=== PATIENT | male | born 1960 | race African-American/Black ===

== ENCOUNTER 2019-06-19 10:14 | Inpatient (IN) | payer BC ==
[~2019-06-19] VITALS: Ht 185.4 cm; Wt 112.7 kg
[2019-06-19 11:15] LABS: BASOPHILS % 0.9 % (0.0-2.0); EOSINOPHILS % 1.4 % (0.0-5.0); HEMATOCRIT. 43.7 % (42.0-52.0); HEMOGLOBIN. 14.9 g/dL (14.0-18.0); LYMPHOCYTES % 26.7 % (20.0-50.0); MEAN CORPUSCULAR HEMOGLOBIN 32.2 pg (28.0-32.0); MEAN CORPUSCULAR VOLUME 94.3 fL (80.0-94.0); MONOCYTES % 10.5 % (2.0-8.0); NEUTROPHILS % 60.5 % (40.0-76.0); PLATELET 152 x1000/uL (130-400); RED BLOOD CELL COUNT 4.64 mill/uL (4.7-6.1); RED CELL DISTRIBUTION WIDTH 13.4 % (11.6-14.6)
[2019-06-19 11:22] LABS: CHLORIDE 108 mEq/L (98-107)
[2019-06-19] MEDS ORDERED: SODIUM CHLORIDE 0.9% 1,000 ML IV ONE (11:30)
[2019-06-19] MEDS ORDERED: INSULIN REGULAR (HUMULIN R) 300UNITS/3ML IV NR (13:00)
[2019-06-19] MEDS ORDERED: SODIUM BICARBONATE 8.4% 1 MEQ/ML 50ML SYR IV NR (13:00)
[2019-06-19] MEDS ORDERED: CALCIUM CHLORIDE 1GM/10ML SYR IV NR (13:00)
[2019-06-19] MEDS ORDERED: DEXTROSE 50% WATER 50ML SYRINGE IV NR (13:00)
[2019-06-19] MEDS ORDERED: DEXTROSE 50% WATER 50ML SYRINGE IV PRN (14:45)
[2019-06-19] MEDS ORDERED: ACETAMINOPHEN 325MG TABLET PO PRN (14:45)
[2019-06-19] MEDS ORDERED: SODIUM POLYSTYRENE SULFONATE 15 G/60 ML BOT PO SCH (15:00)
[2019-06-19] MEDS: SODIUM CHLORIDE 0.9% 1,000 ML IV SCH (15:15)
[2019-06-19 16:47] LABS: CREATINE KINASE 781 IU/L (39-308)
[2019-06-19] MEDS: BLOOD SUGAR DIAGNOSTIC STRIP TEST SCH ×2 (17:11→21:00)
[2019-06-19] MEDS: INSULIN LISPRO 100 UNITS/ML SUBCUT SCH ×2 (18:20→21:00)
[2019-06-20] MEDS ORDERED: AMLODIPINE 5MG TABLET PO SCH (00:30)
[2019-06-20] MEDS ORDERED: METO100T16 PO (00:44)
[2019-06-20] MEDS ORDERED: AMLO10TA80 PO (00:44)
[2019-06-20] MEDS ORDERED: VALS160T28 PO (00:44)
[2019-06-20] MEDS ORDERED: ASPI-1497 PO (00:45)
[2019-06-20] MEDS ORDERED: GLIM2TAB30 PO (00:45)
[2019-06-20] MEDS: SODIUM CHLORIDE 0.9% 1,000 ML IV SCH ×2 (00:54→16:51)
[2019-06-20] MEDS: HEPARIN 5000 UNITS/ML VIAL SUBCUT SCH ×3 (00:55→21:00)
[2019-06-20 01:26] VITALS: BP 174/104
[2019-06-20 01:32] LABS: CLARITY URINE CLEAR (CLEAR); COLOR URINE YELLOW (YELLOW); KETONES URINE NEGATIVE (NEGATIVE); LEUKOCYTE ESTERASE URINE NEGATIVE (NEGATIVE); NITRITE URINE NEGATIVE (NEGATIVE); OCCULT BLOOD URINE 2+ (NEGATIVE); PH URINE 6.5 (4.5-8.0); PROTEIN URINE 4+ (NEGATIVE); SPECIFIC GRAVITY URINE 1.015 (1.005-1.030); UROBILINOGEN URINE 0.2 E.U./dL (0.2-1.0)
[2019-06-20 01:49] LABS: *AMPHETAMINES SCREEN URINE NEGATIVE (NEGATIVE); *BARBITURATES SCREEN URINE NEGATIVE (NEGATIVE)
[2019-06-20 01:50] LABS: *BENZODIAZEPINES SCREEN URINE NEGATIVE (NEGATIVE); *COCAINE SCREEN URINE PRESUMTIVE POSITIVE (NEGATIVE); CANNABINOID URINE SCREEN NEGATIVE (NEGATIVE); METHADONE URINE SCREEN NEGATIVE (NEGATIVE); OPIATES URINE SCREEN NEGATIVE (NEGATIVE); PHENCYCLIDINE URINE SCREEN NEGATIVE (NEGATIVE)
[2019-06-20 04:00] VITALS: BP_SYST 157; BP_SYST 160; BP_DIAS 77; BP_DIAS 98
[2019-06-20] MEDS: BLOOD SUGAR DIAGNOSTIC STRIP TEST SCH ×4 (06:39→21:30)
[2019-06-20 07:39] LABS: BASOPHILS % 0.5 % (0.0-2.0); EOSINOPHILS % 5.7 % (0.0-5.0); HEMATOCRIT. 38.1 % (42.0-52.0); HEMOGLOBIN. 12.8 g/dL (14.0-18.0); MEAN CORPUSCULAR HEMOGLOBIN 31.7 pg (28.0-32.0); MEAN CORPUSCULAR VOLUME 94.2 fL (80.0-94.0); MEAN PLATELET VOLUME 9.1 fl (7.4-10.4); MONOCYTES % 9.5 % (2.0-8.0); NEUTROPHILS % 51.3 % (40.0-76.0); PLATELET 119 x1000/uL (130-400); RED BLOOD CELL COUNT 4.05 mill/uL (4.7-6.1); RED CELL DISTRIBUTION WIDTH 13.6 % (11.6-14.6)
[2019-06-20] MEDS: INSULIN LISPRO 100 UNITS/ML SUBCUT SCH ×4 (07:50→21:30)
[2019-06-20 07:53] LABS: CHLORIDE 112 mEq/L (98-107)
[2019-06-20 08:00] VITALS: BP 179/93
[2019-06-20] MEDS ORDERED: METOPROLOL TARTRATE 100MG TABLET PO SCH (09:00)
[2019-06-20] MEDS: GLIMEPIRIDE 2MG TABLET PO SCH (09:20)
[2019-06-20] MEDS: METOPROLOL TARTRATE 100MG TABLET PO SCH ×2 (10:56→21:28)
[2019-06-20 12:00] VITALS: BP 159/91
[2019-06-20] MEDS: AMLODIPINE 10MG TABLET PO SCH (12:01)
[2019-06-20 12:30] LABS: CREATINE KINASE 568 IU/L (39-308)
[2019-06-20] MEDS: CLONIDINE 0.2MG TABLET PO SCH ×2 (13:48→21:31)
[2019-06-20 16:00] VITALS: BP 130/76
[2019-06-20 20:00] VITALS: BP 141/80
[2019-06-21] VITALS (16 sets, daily range): BP systolic 132–176; BP diastolic 67–89
[2019-06-21] MEDS: SODIUM CHLORIDE 0.9% 1,000 ML IV SCH ×2 (03:49→17:29)
[2019-06-21] MEDS: CLONIDINE 0.2MG TABLET PO SCH ×3 (05:33→21:19)
[2019-06-21] MEDS: BLOOD SUGAR DIAGNOSTIC STRIP TEST SCH ×4 (06:37→21:19)
[2019-06-21 07:24] LABS: PARTIAL THROMBOPLASTIN TIME 29.1 sec (23.4-31.0); PROTHROMBIN TIME 10.4 sec (9.6-11.0)
[2019-06-21] MEDS: INSULIN LISPRO 100 UNITS/ML SUBCUT SCH ×4 (07:50→21:00)
[2019-06-21] MEDS: HEPARIN 5000 UNITS/ML VIAL SUBCUT SCH ×2 (08:05→21:19)
[2019-06-21] MEDS: GLIMEPIRIDE 2MG TABLET PO SCH (08:16)
[2019-06-21] MEDS: METOPROLOL TARTRATE 100MG TABLET PO SCH ×2 (08:16→21:20)
[2019-06-21] MEDS: AMLODIPINE 10MG TABLET PO SCH (08:16)
[2019-06-21] MEDS ORDERED: LIDOCAINE HCL 1% 20ML VIAL (Pyxis) INJ ONE (09:16)
[2019-06-21] MEDS ORDERED: FENTANYL CITRATE/PF 50MCG/ML 2ML VIAL ONE (09:16)
[2019-06-21] MEDS ORDERED: SODIUM BICARBONATE 4% (2.4MEQ) 5ML VIAL IV ONE (09:16)
[2019-06-21] MEDS ORDERED: FENTANYL CITRATE/PF 50MCG/ML 2ML VIAL IV ONE (10:00)
[2019-06-21] MEDS ORDERED: ONDANSETRON HCL 4MG/2ML INJ ONE (10:06)
[2019-06-21] MEDS: ONDANSETRON HCL 4MG/2ML INJ IV PRN ×2 (10:19→11:01)
[2019-06-21] MEDS ORDERED: INSULIN GLARGINE UD 100 UNITS/ML SYR SUBCUT SCH (13:00)
[2019-06-21 13:41] LABS: BASOPHILS % 0.3 % (0.0-2.0); EOSINOPHILS % 2.9 % (0.0-5.0); HEMATOCRIT 36.9 % (42.0-52.0); HEMATOCRIT. 36.8 % (42.0-52.0); LYMPHOCYTES % 21.3 % (20.0-50.0); MEAN CORPUSCULAR HEMOGLOBIN 32.9 pg (28.0-32.0); MEAN CORPUSCULAR VOLUME 93.2 fL (80.0-94.0); MEAN PLATELET VOLUME 9.1 fl (7.4-10.4); MONOCYTES % 6.2 % (2.0-8.0); NEUTROPHILS % 69.3 % (40.0-76.0); PLATELET 126 x1000/uL (130-400); RED BLOOD CELL COUNT 3.95 mill/uL (4.7-6.1); RED CELL DISTRIBUTION WIDTH 13.6 % (11.6-14.6)
[2019-06-21] MEDS ORDERED: ALBUTEROL (0.083%) 2.5MG/3ML NEB HHN NR (14:30)
[2019-06-21] MEDS ORDERED: SODIUM POLYSTYRENE SULFONATE 15 G/60 ML BOT PO NR (16:00)
[2019-06-21 17:06] LABS: ANTI-NUCLEAR ANTIBODIES DIRECT Negative (Negative)
[2019-06-22] VITALS: BP 165/83
[2019-06-22 04:00] VITALS: BP 139/82
[2019-06-22] MEDS: CLONIDINE 0.2MG TABLET PO SCH (05:29)
[2019-06-22] MEDS: BLOOD SUGAR DIAGNOSTIC STRIP TEST SCH (07:45)
[2019-06-22] MEDS: GLIMEPIRIDE 2MG TABLET PO SCH (08:32)
[2019-06-22] MEDS: AMLODIPINE 10MG TABLET PO SCH (08:32)
[2019-06-22] MEDS: HEPARIN 5000 UNITS/ML VIAL SUBCUT SCH (09:00)
[2019-06-22] MEDS: METOPROLOL TARTRATE 100MG TABLET PO SCH (09:00)
[2019-06-22] MEDS: INSULIN LISPRO 100 UNITS/ML SUBCUT SCH (09:15)
[2019-06-22 10:43] LABS: BASOPHILS % 0.3 % (0.0-2.0); EOSINOPHILS % 3.2 % (0.0-5.0); HEMATOCRIT. 35.1 % (42.0-52.0); HEMOGLOBIN. 12.3 g/dL (14.0-18.0); LYMPHOCYTES % 24.1 % (20.0-50.0); MEAN CORPUSCULAR HEMOGLOBIN 32.8 pg (28.0-32.0); MEAN CORPUSCULAR VOLUME 93.6 fL (80.0-94.0); MEAN PLATELET VOLUME 9.4 fl (7.4-10.4); MONOCYTES % 6.2 % (2.0-8.0); NEUTROPHILS % 66.2 % (40.0-76.0); PLATELET 126 x1000/uL (130-400); RED BLOOD CELL COUNT 3.75 mill/uL (4.7-6.1); RED CELL DISTRIBUTION WIDTH 13.2 % (11.6-14.6)
[2019-06-22] MEDS ORDERED: CLON0.2T12 PO (11:17)
[2019-06-22 12:41] VITALS: BP 160/82
== END 2019-06-22 16:19 | disposition home or self-care (01) | DRG 682 ==
LOC: ER 10:14 → 6WST 14:32 → ENRESERV 21:41
PROVIDERS: ADMIT Internal Medicine; ATTEND Internal Medicine
PROC: 0TB03ZX Excision of Right Kidney, Percutaneous Approach, Diagnostic (ICD-10-PCS; principal; 2019-06-21)
DX: N17.9 Acute kidney failure, unspecified (principal); E43 Unspecified severe protein-calorie malnutrition; E87.1 Hypo-osmolality and hyponatremia; J06.9 Acute upper respiratory infection, unspecified; E11.65 Type 2 diabetes mellitus with hyperglycemia; I10 Essential (primary) hypertension; F14.10 Cocaine abuse, uncomplicated; E87.5 Hyperkalemia; E86.0 Dehydration; F17.200 Nicotine dependence, unspecified, uncomplicated; G89.29 Other chronic pain; Z79.4 Long term (current) use of insulin; Z79.899 Other long term (current) drug therapy; Z79.82 Long term (current) use of aspirin; Z71.51 Drug abuse counseling and surveillance of drug abuser; Z68.32 Body mass index [BMI] 32.0-32.9, adult
CPT/HCPCS: 36415; 71045; 76770; 76942; 80048; 80053; 80305; 81003; 82550; 82570; 82575; 82962; 83036; 83735; 83880; 84132; 84156; 84484; 85014; 85018; 85025; 86038; 86160; 86803; 88305; 88313; 88346; 88348; 93005; 97161; 99285; J1644; J1815; J2405; J3010; J3490; J7030

== ENCOUNTER 2019-12-28 18:10 | Inpatient (IN) | payer BC ==
[~2019-12-28] VITALS: Ht 188 cm; Wt 111.1 kg
[~2019-12-28 18:10] MED LIST: AMLO10TA80 PO; CLON0.2T12 PO; GLIM2TAB30 PO; METO100T16 PO
[2019-12-28] MEDS ORDERED: SODIUM CHLORIDE 0.9% 1,000 ML IV ONE (19:16)
[2019-12-28] MEDS ORDERED: ASPIRIN 81MG TABLET PO ONE (19:30)
[2019-12-28 21:00] LABS: EOSINOPHILS % 5.4 % (0.0-5.0); HEMATOCRIT. 35.4 % (42.0-52.0); LYMPHOCYTES % 26.9 % (20.0-50.0); MEAN CORPUSCULAR HEMOGLOBIN 31.4 pg (28.0-32.0); MEAN CORPUSCULAR VOLUME 92.7 fL (80.0-94.0); MEAN PLATELET VOLUME 8.8 fl (7.4-10.4); MONOCYTES % 6.2 % (2.0-8.0); NEUTROPHILS % 60.5 % (40.0-76.0); PLATELET 198 x1000/uL (130-400); RED BLOOD CELL COUNT 3.81 mill/uL (4.7-6.1); RED CELL DISTRIBUTION WIDTH 13.5 % (11.6-14.6)
[2019-12-28 21:03] LABS: CHLORIDE 113 mEq/L (98-107)
[2019-12-28 21:07] LABS: PARTIAL THROMBOPLASTIN TIME 28.5 sec (23.4-31.0); PROTHROMBIN TIME 10.2 sec (9.6-11.0)
[2019-12-28] MEDS ORDERED: DOCUSATE SODIUM 100MG CAPSULE PO PRN (21:45)
[2019-12-28] MEDS ORDERED: ONDANSETRON HCL 4MG/2ML INJ IV PRN (21:45)
[2019-12-28] MEDS ORDERED: MAGNESIUM/ALUMINUM HYDROXIDE/SIMETHICONE 30ML UDC PO PRN (21:45)
[2019-12-28] MEDS ORDERED: DIPHENHYDRAMINE 50MG/ML VIAL IV PRN (21:45)
[2019-12-28] MEDS ORDERED: ACETAMINOPHEN 325MG TABLET PO PRN (21:45)
[2019-12-28 22:53] LABS: CLARITY URINE CLEAR (CLEAR); COLOR URINE YELLOW (YELLOW); KETONES URINE NEGATIVE (NEGATIVE); LEUKOCYTE ESTERASE URINE NEGATIVE (NEGATIVE); NITRITE URINE NEGATIVE (NEGATIVE); OCCULT BLOOD URINE 1+ (NEGATIVE); PH URINE 5.5 (4.5-8.0); PROTEIN URINE 3+ (NEGATIVE); UROBILINOGEN URINE 0.2 E.U./dL (0.2-1.0)
[2019-12-29] VITALS (7 sets, daily range): BP systolic 147–193; BP diastolic 58–91
[2019-12-29] MEDS: CLONIDINE 0.1MG TABLET PO PRN (01:29)
[2019-12-29] MEDS: ACETAMINOPHEN 325MG TABLET PO PRN ×2 (01:29→21:38)
[2019-12-29] MEDS ORDERED: AMLO10TA80 PO (02:41)
[2019-12-29] MEDS ORDERED: METO-539 PO (02:41)
[2019-12-29] MEDS ORDERED: SITA1TAB6 PO (02:41)
[2019-12-29] MEDS ORDERED: ATOR10TA69 PO (02:41)
[2019-12-29] MEDS ORDERED: ASPI-1497 PO (02:41)
[2019-12-29 07:46] LABS: HEMATOCRIT 28.4 % (42.0-52.0); HEMOGLOBIN 9.5 g/dL (14.0-18.0); MEAN CORPUSCULAR HEMOGLOBIN 30.7 pg (28.0-32.0); MEAN CORPUSCULAR VOLUME 92.2 fL (80.0-94.0); PLATELET 164 x1000/uL (130-400); RED BLOOD CELL COUNT 3.08 mill/uL (4.7-6.1); RED CELL DISTRIBUTION WIDTH 13.3 % (11.6-14.6)
[2019-12-29 07:56] LABS: CHLORIDE 116 mEq/L (98-107)
[2019-12-29] MEDS: FUROSEMIDE 40MG TABLET PO SCH (08:23)
[2019-12-29] MEDS: ENOXAPARIN 40MG/0.4ML SYR SUBCUT SCH (08:23)
[2019-12-29 11:30] LABS: PHOSPHORUS 4.8 mg/dL (2.5-4.9)
[2019-12-29] MEDS: CITRIC ACID/SODIUM CITRATE SOLN 15ML UDC PO SCH ×2 (14:51→17:55)
[2019-12-30] VITALS: BP 165/83
[2019-12-30] MEDS: CLONIDINE 0.1MG TABLET PO PRN ×2 (00:41→20:12)
[2019-12-30 04:00] VITALS: BP 175/77
[2019-12-30 06:10] LABS: BASOPHILS % 0.8 % (0.0-2.0); HEMATOCRIT. 30.9 % (42.0-52.0); HEMOGLOBIN. 10.5 g/dL (14.0-18.0); LYMPHOCYTES % 30.3 % (20.0-50.0); MEAN CORPUSCULAR VOLUME 91.5 fL (80.0-94.0); MEAN PLATELET VOLUME 8.8 fl (7.4-10.4); NEUTROPHILS % 56.9 % (40.0-76.0); PLATELET 172 x1000/uL (130-400); RED BLOOD CELL COUNT 3.38 mill/uL (4.7-6.1)
[2019-12-30 08:00] VITALS: BP 168/86
[2019-12-30] MEDS: FUROSEMIDE 40MG TABLET PO SCH (09:23)
[2019-12-30] MEDS: AMLODIPINE 10MG TABLET PO SCH (09:24)
[2019-12-30] MEDS: ENOXAPARIN 40MG/0.4ML SYR SUBCUT SCH (09:24)
[2019-12-30] MEDS: CITRIC ACID/SODIUM CITRATE SOLN 15ML UDC PO SCH ×3 (09:29→17:10)
[2019-12-30 12:00] VITALS: BP 148/84
[2019-12-30] MEDS: LOSARTAN POTASSIUM 25 MG TABLET PO SCH (13:14)
[2019-12-30 16:00] VITALS: BP 165/83
[2019-12-30] MEDS: GLIMEPIRIDE 2MG TABLET PO SCH (17:10)
[2019-12-30 20:00] VITALS: BP 180/94
[2019-12-30] MEDS ORDERED: ATORVASTATIN CALCIUM 40MG TABLET PO SCH (21:00)
[2019-12-30 23:06] LABS: CREATININE URINE (RAW) 50.4 mg/dl
[2019-12-31] VITALS: BP 118/70
[2019-12-31 04:00] VITALS: BP 156/88
[2019-12-31 07:25] LABS: BASOPHILS % 0.7 % (0.0-2.0); EOSINOPHILS % 4.7 % (0.0-5.0); HEMATOCRIT. 31.7 % (42.0-52.0); HEMOGLOBIN. 10.7 g/dL (14.0-18.0); LYMPHOCYTES % 27.2 % (20.0-50.0); MEAN CORPUSCULAR HEMOGLOBIN 30.6 pg (28.0-32.0); MEAN CORPUSCULAR VOLUME 90.7 fL (80.0-94.0); MEAN PLATELET VOLUME 8.5 fl (7.4-10.4); MONOCYTES % 8.3 % (2.0-8.0); NEUTROPHILS % 59.1 % (40.0-76.0); PLATELET 173 x1000/uL (130-400); RED BLOOD CELL COUNT 3.49 mill/uL (4.7-6.1); RED CELL DISTRIBUTION WIDTH 13.1 % (11.6-14.6)
[2019-12-31 09:02] VITALS: BP 169/96
[2019-12-31] MEDS: AMLODIPINE 10MG TABLET PO SCH (09:16)
[2019-12-31] MEDS: LOSARTAN POTASSIUM 25 MG TABLET PO SCH (09:16)
[2019-12-31] MEDS: FUROSEMIDE 40MG TABLET PO SCH (09:17)
[2019-12-31] MEDS: GLIMEPIRIDE 2MG TABLET PO SCH (09:17)
[2019-12-31] MEDS: CITRIC ACID/SODIUM CITRATE SOLN 15ML UDC PO SCH ×2 (09:19→13:28)
[2019-12-31] MEDS: ENOXAPARIN 40MG/0.4ML SYR SUBCUT SCH (09:20)
[2019-12-31] MEDS: ACETAMINOPHEN 325MG TABLET PO PRN (11:20)
[2019-12-31] MEDS ORDERED: ASPIRIN 81MG EC TABLET PO SCH (11:30)
[2019-12-31 11:58] VITALS: BP 152/84
[2019-12-31 12:51] VITALS: BP 163/88
== END 2019-12-31 14:06 | disposition home or self-care (01) | DRG 683 ==
LOC: ER 18:10 → 6WST 21:32 → EDBEDREQTM 21:39 → EDBEDREQ 21:39 → ENRESERV 22:21
PROVIDERS: ADMIT Internal Medicine Nephrology; ATTEND Internal Medicine Nephrology
DX: N17.0 Acute kidney failure with tubular necrosis (principal); I12.0 Hypertensive chronic kidney disease with stage 5 chronic kidney disease or end stage renal disease; E87.2 Acidosis; N11.9 Chronic tubulo-interstitial nephritis, unspecified; N18.5 Chronic kidney disease, stage 5; E11.22 Type 2 diabetes mellitus with diabetic chronic kidney disease; E78.2 Mixed hyperlipidemia; E11.21 Type 2 diabetes mellitus with diabetic nephropathy; D64.9 Anemia, unspecified; R07.89 Other chest pain; D63.1 Anemia in chronic kidney disease; Z79.84 Long term (current) use of oral hypoglycemic drugs; Z82.49 Family history of ischemic heart disease and other diseases of the circulatory system; Z83.3 Family history of diabetes mellitus; Z79.82 Long term (current) use of aspirin; Z86.73 Personal history of transient ischemic attack (TIA), and cerebral infarction without residual deficits; Z79.899 Other long term (current) drug therapy
CPT/HCPCS: 36415; 71045; 76770; 80048; 80053; 80061; 81003; 82575; 82962; 83036; 83735; 83880; 84100; 84484; 85025; 85027; 93005; 93306; 99285; J1200; J1650; J7030

== ENCOUNTER 2020-07-03 13:22 | Inpatient (IN) | payer BC ==
[~2020-07-03] VITALS: Ht 185.4 cm; Wt 109.9 kg
[~2020-07-03 13:22] MED LIST changes: +ASPI-1497 PO; +ATOR10TA69 PO; +INSULIN GLARGINE UD 100 UNITS/ML SYR SUBCUT SCH; +METO-539 PO; +SITA1TAB6 PO
[2020-07-03 14:28] LABS: BASOPHILS % 0.9 % (0.0-2.0); EOSINOPHILS % 4.2 % (0.0-5.0); HEMATOCRIT. 31.5 % (42.0-52.0); HEMOGLOBIN. 10.6 g/dL (14.0-18.0); LYMPHOCYTES % 22.5 % (20.0-50.0); MEAN CORPUSCULAR HEMOGLOBIN 31.2 pg (28.0-32.0); MEAN CORPUSCULAR VOLUME 92.5 fL (80.0-94.0); MEAN PLATELET VOLUME 8.4 fl (7.4-10.4); NEUTROPHILS % 59.4 % (40.0-76.0); PLATELET 165 x1000/uL (130-400); RED CELL DISTRIBUTION WIDTH 14.6 % (11.6-14.6)
[2020-07-03 14:33] LABS: CHLORIDE 102 mEq/L (98-107)
[2020-07-03 14:36] LABS: PROTHROMBIN TIME 10.8 sec (9.6-11.0)
[2020-07-03] MEDS: LOSARTAN POTASSIUM 50 MG TABLET PO SCH ×2 (15:00→21:23)
[2020-07-03] MEDS: SEVELAMER CARBONATE 800 MG TABLET PO SCH (17:47)
[2020-07-03] MEDS ORDERED: DOCUSATE SODIUM 100MG CAPSULE PO PRN (18:00)
[2020-07-03] MEDS ORDERED: DEXTROSE 50% WATER 50ML SYRINGE IV PRN (18:00)
[2020-07-03] MEDS ORDERED: ONDANSETRON HCL 4MG/2ML INJ IV PRN (18:00)
[2020-07-03] MEDS ORDERED: LORAZEPAM 0.5MG TABLET PO PRN (18:00)
[2020-07-03] MEDS ORDERED: TRAMADOL 50MG TABLET PO PRN (18:00)
[2020-07-03] MEDS ORDERED: ACETAMINOPHEN 325MG TABLET PO PRN ×2 (18:00)
[2020-07-03] MEDS: INSULIN LISPRO 100 UNITS/ML SUBCUT SCH ×3 (18:00→21:24)
[2020-07-03] MEDS ORDERED: DIPHENHYDRAMINE 50MG/ML VIAL IV PRN (18:00)
[2020-07-03] MEDS ORDERED: SEVELAMER CARBONATE 800 MG TABLET PO SCH (18:00)
[2020-07-03] MEDS ORDERED: GUAIFENESIN 200MG/10ML SUGAR FREE UDC PO PRN (18:00)
[2020-07-03] MEDS ORDERED: MAGNESIUM/ALUMINUM HYDROXIDE/SIMETHICONE 30ML UDC PO PRN (18:00)
[2020-07-03] MEDS ORDERED: NITROGLYCERIN 0.4MG TABLET SL SL PRN (18:00)
[2020-07-03] MEDS ORDERED: CLONIDINE 0.1MG TABLET PO PRN (18:00)
[2020-07-03] MEDS: BLOOD SUGAR DIAGNOSTIC STRIP TEST SCH ×2 (18:41→21:24)
[2020-07-03 19:23] LABS: TOTAL IRON BINDING CAPACITY 207 ug/dL (250-450)
[2020-07-03 19:36] LABS: FOLIC ACID (FOLATE) SERUM >20 ng/mL ng/mL (>5.38)
[2020-07-03 19:49] LABS: VITAMIN B12 SERUM 519 pg/mL (211-911)
[2020-07-03] MEDS: ENOXAPARIN 40MG/0.4ML SYR SUBCUT SCH (20:18)
[2020-07-03] MEDS: INSULIN GLARGINE UD 100 UNITS/ML SYR SUBCUT SCH (20:19)
[2020-07-03] MEDS ORDERED: ZOLPIDEM TARTRATE 5MG TABLET PO PRN (21:00)
[2020-07-03] MEDS: FAMOTIDINE 20MG TABLET PO SCH (21:24)
[2020-07-03] MEDS: ATORVASTATIN CALCIUM 40MG TABLET PO SCH (21:24)
[2020-07-03] MEDS: METOPROLOL TARTRATE 25MG TABLET PO SCH (21:24)
[2020-07-03] MEDS: ASCORBIC ACID 500 MG TABLET PO SCH (21:24)
[2020-07-03 23:57] VITALS: BP 147/74
[2020-07-04] VITALS: BP 139/78
[2020-07-04 00:20] LABS: CREATINE KINASE 239 IU/L (39-308)
[2020-07-04 00:21] LABS: CREATINE KINASE MB FRACTION 2.2 ng/mL (0.5-3.6)
[2020-07-04] MEDS ORDERED: ATOR-2 PO (01:44)
[2020-07-04] MEDS ORDERED: CLOP75TA33 PO (01:44)
[2020-07-04] MEDS ORDERED: HYDR-4135 PO (01:44)
[2020-07-04] MEDS ORDERED: ICOS1CAP PO (01:44)
[2020-07-04] MEDS ORDERED: VALS320T16 PO (01:44)
[2020-07-04] MEDS ORDERED: CALC30CA PO (01:44)
[2020-07-04] MEDS ORDERED: EZET10TA13 PO (01:44)
[2020-07-04] MEDS ORDERED: FURO40TA5 PO (01:44)
[2020-07-04] MEDS ORDERED: *PATIENT'S OWN MEDICATION STORAGE XX SCH (02:00)
[2020-07-04 04:00] VITALS: BP 132/62
[2020-07-04] MEDS: BLOOD SUGAR DIAGNOSTIC STRIP TEST SCH ×4 (06:29→20:38)
[2020-07-04] MEDS: INSULIN LISPRO 100 UNITS/ML SUBCUT SCH ×7 (06:30→20:39)
[2020-07-04 06:49] LABS: BASOPHILS % 0.8 % (0.0-2.0); EOSINOPHILS % 5.9 % (0.0-5.0); HEMATOCRIT. 31.3 % (42.0-52.0); HEMOGLOBIN. 10.4 g/dL (14.0-18.0); LYMPHOCYTES % 30.8 % (20.0-50.0); MEAN CORPUSCULAR HEMOGLOBIN 31.1 pg (28.0-32.0); MEAN CORPUSCULAR VOLUME 93.2 fL (80.0-94.0); MEAN PLATELET VOLUME 8.8 fl (7.4-10.4); MONOCYTES % 13.9 % (2.0-8.0); NEUTROPHILS % 48.6 % (40.0-76.0); PLATELET 160 x1000/uL (130-400); RED BLOOD CELL COUNT 3.35 mill/uL (4.7-6.1)
[2020-07-04 06:58] LABS: CHLORIDE 104 mEq/L (98-107)
[2020-07-04 07:12] LABS: CREATINE KINASE 196 IU/L (39-308); CREATINE KINASE MB FRACTION 1.6 ng/mL (0.5-3.6); HDL CHOLESTEROL 31 mg/dL (40-59)
[2020-07-04 07:13] LABS: LDL CHOLESTEROL 90 mg/dL (5-100)
[2020-07-04 07:59] VITALS: BP 148/83
[2020-07-04] MEDS: ASPIRIN 325MG EC TABLET PO SCH (08:09)
[2020-07-04] MEDS: ZINC SULFATE 220 MG ( 50 ) CAPSULE PO SCH (08:09)
[2020-07-04] MEDS: SEVELAMER CARBONATE 800 MG TABLET PO SCH ×3 (08:09→17:28)
[2020-07-04] MEDS: METOPROLOL TARTRATE 25MG TABLET PO SCH ×2 (08:09→20:38)
[2020-07-04] MEDS: CHOLECALCIFEROL (D3) 1000 UNIT TABLET PO SCH (08:09)
[2020-07-04] MEDS: AMLODIPINE 10MG TABLET PO SCH (08:09)
[2020-07-04] MEDS: ASCORBIC ACID 500 MG TABLET PO SCH ×2 (08:09→20:38)
[2020-07-04] MEDS: LOSARTAN POTASSIUM 50 MG TABLET PO SCH ×2 (08:09→20:38)
[2020-07-04 08:45] LABS: *AMPHETAMINES SCREEN URINE NEGATIVE (NEGATIVE)
[2020-07-04 08:46] LABS: *BARBITURATES SCREEN URINE NEGATIVE (NEGATIVE); *BENZODIAZEPINES SCREEN URINE NEGATIVE (NEGATIVE); *COCAINE SCREEN URINE NEGATIVE (NEGATIVE); METHADONE URINE SCREEN NEGATIVE (NEGATIVE); OPIATES URINE SCREEN NEGATIVE (NEGATIVE); PHENCYCLIDINE URINE SCREEN NEGATIVE (NEGATIVE)
[2020-07-04 08:47] LABS: CANNABINOID URINE SCREEN NEGATIVE (NEGATIVE)
[2020-07-04] MEDS ORDERED: AMLODIPINE 10MG TABLET PO SCH (09:00)
[2020-07-04] MEDS: INSULIN GLARGINE UD 100 UNITS/ML SYR SUBCUT SCH (09:35)
[2020-07-04 12:00] VITALS: BP 136/70
[2020-07-04] MEDS: CINACALCET HCL 30MG TABLET PO SCH (12:12)
[2020-07-04 16:00] VITALS: BP 118/75
[2020-07-04] MEDS: ENOXAPARIN 40MG/0.4ML SYR SUBCUT SCH (17:28)
[2020-07-04 20:00] VITALS: BP 126/71
[2020-07-04] MEDS: ATORVASTATIN CALCIUM 40MG TABLET PO SCH (20:38)
[2020-07-04] MEDS: FAMOTIDINE 20MG TABLET PO SCH (20:38)
[2020-07-05] VITALS: BP 130/69
[2020-07-05 04:00] VITALS: BP 121/75
[2020-07-05] MEDS: BLOOD SUGAR DIAGNOSTIC STRIP TEST SCH (06:26)
[2020-07-05] MEDS: SEVELAMER CARBONATE 800 MG TABLET PO SCH (06:26)
[2020-07-05] MEDS: INSULIN LISPRO 100 UNITS/ML SUBCUT SCH ×2 (06:29)
[2020-07-05 08:00] VITALS: BP 95/69
[2020-07-05] MEDS: METOPROLOL TARTRATE 25MG TABLET PO SCH (08:52)
[2020-07-05] MEDS: AMLODIPINE 10MG TABLET PO SCH (08:52)
[2020-07-05] MEDS: LOSARTAN POTASSIUM 50 MG TABLET PO SCH (08:52)
[2020-07-05] MEDS: CINACALCET HCL 30MG TABLET PO SCH (08:58)
[2020-07-05] MEDS: ASPIRIN 325MG EC TABLET PO SCH (08:58)
[2020-07-05] MEDS: CHOLECALCIFEROL (D3) 1000 UNIT TABLET PO SCH (08:58)
[2020-07-05] MEDS: ZINC SULFATE 220 MG ( 50 ) CAPSULE PO SCH (08:58)
[2020-07-05] MEDS: ASCORBIC ACID 500 MG TABLET PO SCH (08:58)
[2020-07-05 09:15] VITALS: BP 95/69
== END 2020-07-05 09:53 | disposition home or self-care (01) | DRG 865 ==
LOC: ER 13:22 → 5WST 16:21 → SUPCPDRO 17:56 → ENRESERV 21:20
PROVIDERS: ADMIT Internal Medicine; ATTEND Internal Medicine
PROC: 5A1D70Z Performance of Urinary Filtration, Intermittent, Less than 6 Hours Per Day (ICD-10-PCS; principal; 2020-07-04)
DX: T88.1XXA Other complications following immunization, not elsewhere classified, initial encounter (principal); N18.6 End stage renal disease; I12.0 Hypertensive chronic kidney disease with stage 5 chronic kidney disease or end stage renal disease; E87.1 Hypo-osmolality and hyponatremia; N25.81 Secondary hyperparathyroidism of renal origin; M94.0 Chondrocostal junction syndrome [Tietze]; R53.1 Weakness; R42 Dizziness and giddiness; E10.22 Type 1 diabetes mellitus with diabetic chronic kidney disease; E10.40 Type 1 diabetes mellitus with diabetic neuropathy, unspecified; E78.00 Pure hypercholesterolemia, unspecified; K59.00 Constipation, unspecified; D63.8 Anemia in other chronic diseases classified elsewhere; E10.65 Type 1 diabetes mellitus with hyperglycemia; E78.5 Hyperlipidemia, unspecified; Z83.3 Family history of diabetes mellitus; Z86.73 Personal history of transient ischemic attack (TIA), and cerebral infarction without residual deficits; Z99.2 Dependence on renal dialysis; Z82.49 Family history of ischemic heart disease and other diseases of the circulatory system; Z79.4 Long term (current) use of insulin
CPT/HCPCS: 36415; 70551; 71045; 72141; 72148; 80053; 80061; 80305; 82550; 82553; 82607; 82746; 82962; 83036; 83540; 83550; 83735; 84100; 84484; 85025; 93005; 93306; 93970; 99285; J1650; J1815

== ENCOUNTER 2022-01-01 10:35 | Emergency (ER) | payer BC ==
[~2022-01-01] VITALS: Ht 185.4 cm; Wt 112.0 kg
[~2022-01-01 10:35] MED LIST changes: -AMLO10TA80 PO; -ASPI-1497 PO; +ATOR-2 PO; -ATOR10TA69 PO; +CALC30CA PO; -CLON0.2T12 PO; +CLOP75TA33 PO; +EZET10TA13 PO; +FURO40TA5 PO; +HYDR-4135 PO; +ICOS1CAP PO; -INSULIN GLARGINE UD 100 UNITS/ML SYR SUBCUT SCH; -METO100T16 PO; -SITA1TAB6 PO; +VALS320T16 PO
[2022-01-01] MEDS ORDERED: HYDR-4001 MT (11:36)
[2022-01-01] MEDS ORDERED: MORPHINE SULFATE 10 MG/ML CPJ IM ONE (11:45)
[2022-01-01] MEDS ORDERED: DEXAMETHASONE 10 MG/ML VIAL IM ONE (11:45)
[2022-01-01 12:55] VITALS: BP 122/70
== END 2022-01-01 12:57 | disposition home or self-care (01) ==
LOC: ER 10:35
DX: E11.22 Type 2 diabetes mellitus with diabetic chronic kidney disease (principal); I12.0 Hypertensive chronic kidney disease with stage 5 chronic kidney disease or end stage renal disease; N18.6 End stage renal disease; Z79.899 Other long term (current) drug therapy; Z86.59 Personal history of other mental and behavioral disorders
CPT/HCPCS: 96372; 99284; J1100; J2270

== ENCOUNTER 2022-09-07 15:10 | Inpatient (IN) | payer BC, MEDICARE ==
[~2022-09-07] VITALS: Ht 188 cm; Wt 97.5 kg
[~2022-09-07 15:10] MED LIST changes: +HYDR-4001 MT; +OXYC-100 MT
[2022-09-07] MEDS ORDERED: FENTANYL CITRATE/PF 50MCG/ML 2ML VIAL IV ONE (15:45)
[2022-09-07 16:29] LABS: BG BASE EXCESS -2.7 mmol/L (-2.0-2.0); BG CARBOXYHEMOGLOBIN 0.9 % (0.5-1.5); BG DEOXYHEMOGLOBIN 8.1 % (0.0-5.0); BG FRACTION INSPIRED OXYGEN 28; BG HCO3 ACT 21.8 mmol/L (22.0-26.0); BG OXYGEN SATURATION 91.8 % (92.0-98.5); BG PCO2 36.4 mmHg (35.0-45.0); BG PH 7.395 (7.350-7.450); BG PO2 72.8 mmHg (75.0-100.0); BG SAMPLE SITE RIGHT RADIAL; BG TOTAL HEMOGLOBIN 8.4 g/dL (12.0-18.0); BG VENT MODE NASAL CANNULA
[2022-09-07 17:52] LABS: MEAN CORPUSCULAR HEMOGLOBIN 29.7 pg (28.0-32.0); MEAN CORPUSCULAR VOLUME 92.6 fL (80.0-94.0); MEAN PLATELET VOLUME 7.6 fl (7.4-10.4); PLATELET 415 x1000/uL (130-400); RED BLOOD CELL COUNT 2.31 mill/uL (4.7-6.1); RED CELL DISTRIBUTION WIDTH 18.2 % (11.6-14.6)
[2022-09-07 17:54] LABS: CHLORIDE 95 mEq/L (98-107)
[2022-09-07 18:00] LABS: INR 1.3; PARTIAL THROMBOPLASTIN TIME 31.1 sec (23.4-31.0); PROTHROMBIN TIME 13.4 sec (9.6-11.0)
[2022-09-07 18:07] LABS: HEMATOCRIT. 21.4 % (42.0-52.0); HEMOGLOBIN. 6.9 g/dL (14.0-18.0)
[2022-09-07 18:25] LABS: PLATELET ESTIMATE INCREASED
[2022-09-07] MEDS ORDERED: PIPERACILLIN/TAZ 3.375G PREMIX 50 ML IV ONE (18:45)
[2022-09-07] MEDS ORDERED: VANCOMYCIN 1G PREMIX 200 ML IV SCH (18:45)
[2022-09-07] MEDS ORDERED: IOHEXOL-350 100 ML BOTTLE ONE (20:42)
[2022-09-07] MEDS ORDERED: CLONIDINE 0.1MG TABLET PO PRN (21:00)
[2022-09-07] MEDS ORDERED: ONDANSETRON HCL 4MG/2ML INJ IV PRN (21:00)
[2022-09-07] MEDS ORDERED: DOCUSATE SODIUM 100MG CAPSULE PO PRN (21:00)
[2022-09-07] MEDS ORDERED: MAGNESIUM/ALUMINUM HYDROXIDE/SIMETHICONE 30ML UDC PO PRN (21:00)
[2022-09-07] MEDS ORDERED: ACETAMINOPHEN 325MG TABLET PO PRN ×2 (21:00)
[2022-09-07] MEDS ORDERED: IPRATROPIUM/ALBUTEROL 0.5-3(2.5)MG/3ML NEB HHN PRN (21:00)
[2022-09-07] MEDS ORDERED: GUAIFENESIN 200MG/10ML SUGAR FREE UDC PO PRN (21:00)
[2022-09-07 22:45] LABS: VITAMIN B12 SERUM 1561 pg/mL (211-911)
[2022-09-07] MEDS ORDERED: VANCOMYCIN 750MG PREMIX 150 ML IV NR (23:00)
[2022-09-07] MEDS: FAMOTIDINE 20MG TABLET PO SCH (23:15)
[2022-09-07 23:49] LABS: HEMATOCRIT 19.6 % (42.0-52.0); HEMOGLOBIN 6.4 g/dL (14.0-18.0)
[2022-09-08 00:02] LABS: CREATINE KINASE MB FRACTION 3.8 ng/mL (0.5-3.6)
[2022-09-08 02:00] VITALS: BP 116/82
[2022-09-08] MEDS ORDERED: PIPERACILLIN/TAZOBACTAM 3.375 G in DEXTROSE 5% WATER 50 ML IV SCH (07:00)
[2022-09-08 07:28] LABS: BASOPHILS % 0.8 % (0.0-2.0); EOSINOPHILS % 1.4 % (0.0-5.0); MEAN CORPUSCULAR HEMOGLOBIN 30.6 pg (28.0-32.0); MEAN CORPUSCULAR VOLUME 90.8 fL (80.0-94.0); MEAN PLATELET VOLUME 8.2 fl (7.4-10.4); MONOCYTES % 7.9 % (2.0-8.0); NEUTROPHILS % 77.9 % (40.0-76.0); PLATELET 374 x1000/uL (130-400); RED BLOOD CELL COUNT 2.31 mill/uL (4.7-6.1); RED CELL DISTRIBUTION WIDTH 17.4 % (11.6-14.6)
[2022-09-08 07:54] LABS: CHLORIDE 96 mEq/L (98-107); CREATINE KINASE 63 IU/L (39-308); CREATINE KINASE MB FRACTION 3.9 ng/mL (0.5-3.6); HDL CHOLESTEROL 27 mg/dL (40-59); LDL CHOLESTEROL 52 mg/dL (5-100); PHOSPHORUS 7.7 mg/dL (2.5-4.9); T4 FREE 1.12 ng/dL (0.76-1.46)
[2022-09-08 08:00] VITALS: BP 121/82
[2022-09-08 08:11] LABS: HEMOGLOBIN. 7.1 g/dL (14.0-18.0)
[2022-09-08] MEDS ORDERED: HEPARIN 1000 UNITS/ML 10ML ONE (10:12)
[2022-09-08] MEDS ORDERED: LIDOCAINE HCL 1% 10 MG/ML 10ML VIAL ONE (10:12)
[2022-09-08 12:00] VITALS: BP 104/42
[2022-09-08] MEDS ORDERED: REGADENOSON 0.4 MG/5 ML IV NR (13:15)
[2022-09-08] MEDS: PIPERACILLIN/TAZOBACTAM 3.375 G in DEXTROSE 5% WATER 50 ML IV SCH ×2 (13:23→21:25)
[2022-09-08 14:21] LABS: HEPATITIS B SURFACE ANTIGEN NEGATIVE
[2022-09-08 16:00] VITALS: BP 112/56
[2022-09-08 20:00] VITALS: BP 112/41
[2022-09-08] MEDS ORDERED: DEXTROSE 50% WATER 50ML SYRINGE IV PRN (20:00)
[2022-09-08] MEDS: BLOOD SUGAR DIAGNOSTIC STRIP TEST SCH (21:00)
[2022-09-08] MEDS: FAMOTIDINE 20MG TABLET PO SCH (21:22)
[2022-09-08] MEDS: INSULIN LISPRO 100 UNITS/ML SUBCUT SCH (21:24)
[2022-09-09] VITALS (20 sets, daily range): BP systolic 81–156; BP diastolic 35–87
[2022-09-09] MEDS: BLOOD SUGAR DIAGNOSTIC STRIP TEST SCH ×4 (08:01→20:35)
[2022-09-09] MEDS: INSULIN LISPRO 100 UNITS/ML SUBCUT SCH ×4 (08:01→21:24)
[2022-09-09] MEDS: PIPERACILLIN/TAZOBACTAM 3.375 G in DEXTROSE 5% WATER 50 ML IV SCH ×2 (08:26→21:23)
[2022-09-09 11:17] LABS: BASOPHILS % 0.9 % (0.0-2.0); LYMPHOCYTES % 10.2 % (20.0-50.0); MEAN CORPUSCULAR HEMOGLOBIN 29.9 pg (28.0-32.0); MEAN CORPUSCULAR VOLUME 92.9 fL (80.0-94.0); MEAN PLATELET VOLUME 8.3 fl (7.4-10.4); MONOCYTES % 7.3 % (2.0-8.0); NEUTROPHILS % 80.6 % (40.0-76.0); PLATELET 383 x1000/uL (130-400); RED BLOOD CELL COUNT 2.34 mill/uL (4.7-6.1); RED CELL DISTRIBUTION WIDTH 17.9 % (11.6-14.6)
[2022-09-09 11:31] LABS: HEMATOCRIT. 21.8 % (42.0-52.0)
[2022-09-09 11:50] LABS: CHLORIDE 97 mEq/L (98-107)
[2022-09-09] MEDS ORDERED: POVIDONE-IODINE 10% TOPICAL SOLN 240ML TOP NR (13:45)
[2022-09-09] MEDS ORDERED: DIGOXIN 500MCG/2ML AMP IV NR ×2 (15:00→21:45)
[2022-09-09] MEDS ORDERED: MENTHOL/LANOLIN/CALAMINE/ZN OX OINT 71GM TOP PRN (15:30)
[2022-09-09] MEDS ORDERED: HEPARIN 5000 UNITS/ML VIAL IV NR (20:00)
[2022-09-09] MEDS: FAMOTIDINE 20MG TABLET PO SCH ×2 (21:00→21:24)
[2022-09-09] MEDS ORDERED: EPOETIN ALFA-EPBX 4,000 UNIT/ML VIAL SUBCUT SCH (21:00)
[2022-09-09] MEDS ORDERED: AMIODARONE HCL 200 MG TABLET PO NR (21:45)
[2022-09-10] VITALS: BP 100/65
[2022-09-10 04:00] VITALS: BP 91/48
[2022-09-10] MEDS: BLOOD SUGAR DIAGNOSTIC STRIP TEST SCH (06:35)
[2022-09-10 08:00] VITALS: BP 98/60
[2022-09-10] MEDS: INSULIN LISPRO 100 UNITS/ML SUBCUT SCH (08:08)
[2022-09-10 12:00] VITALS: BP 98/39
[2022-09-10] MEDS ORDERED: DIGOXIN 500MCG/2ML AMP IV NR (12:30)
[2022-09-10] MEDS ORDERED: DOCUSATE SODIUM 100MG CAPSULE PO SCH (21:00)
[2022-09-10] MEDS ORDERED: CHLORHEXIDINE GLUCONATE 4% EXTERNAL USE TOP SCH (21:00)
[2022-09-10] MEDS ORDERED: BISACODYL 10MG SUPP PR PRN (21:00)
[2022-09-10] MEDS ORDERED: ALLOPURINOL 300 MG TABLET PO SCH (21:00)
[2022-09-11] MEDS ORDERED: CHLORHEXIDINE GLUCONATE 4% EXTERNAL USE TOP SCH (05:00)
[2022-09-11] MEDS ORDERED: PARICALCITOL 5 MCG/ML 1ML IV SCH (09:00)
== END 2022-09-10 17:04 | DRG 871 ==
LOC: ER 15:10 → 5EST 18:48 → EDBEDREQ 18:55 → ENRESERV 20:39 → 7WST 23:11
PROVIDERS: ADMIT Internal Medicine; ATTEND Internal Medicine
PROC: 02HV33Z Insertion of Infusion Device into Superior Vena Cava, Percutaneous Approach (ICD-10-PCS; principal; 2022-09-08)
PROC: B548ZZA Ultrasonography of Superior Vena Cava, Guidance (ICD-10-PCS; 2022-09-08)
PROC: B5181ZA Fluoroscopy of Superior Vena Cava using Low Osmolar Contrast, Guidance (ICD-10-PCS; 2022-09-08)
PROC: 30233N1 Transfusion of Nonautologous Red Blood Cells into Peripheral Vein, Percutaneous Approach (ICD-10-PCS; 2022-09-08)
PROC: 02PYX3Z Removal of Infusion Device from Great Vessel, External Approach (ICD-10-PCS; 2022-09-08)
PROC: 5A1D70Z Performance of Urinary Filtration, Intermittent, Less than 6 Hours Per Day (ICD-10-PCS; 2022-09-09)
DX: A41.9 Sepsis, unspecified organism (principal); N18.6 End stage renal disease; J96.01 Acute respiratory failure with hypoxia; J18.9 Pneumonia, unspecified organism; I13.2 Hypertensive heart and chronic kidney disease with heart failure and with stage 5 chronic kidney disease, or end stage renal disease; N25.81 Secondary hyperparathyroidism of renal origin; I24.9 Acute ischemic heart disease, unspecified; G45.9 Transient cerebral ischemic attack, unspecified; I31.39 Other pericardial effusion (noninflammatory); E46 Unspecified protein-calorie malnutrition; J98.11 Atelectasis; E87.20 Acidosis, unspecified; G93.40 Encephalopathy, unspecified; L97.429 Non-pressure chronic ulcer of left heel and midfoot with unspecified severity; Z66 Do not resuscitate; E78.5 Hyperlipidemia, unspecified; E11.22 Type 2 diabetes mellitus with diabetic chronic kidney disease; D63.1 Anemia in chronic kidney disease; I25.10 Atherosclerotic heart disease of native coronary artery without angina pectoris; E11.42 Type 2 diabetes mellitus with diabetic polyneuropathy; E11.621 Type 2 diabetes mellitus with foot ulcer; I48.0 Paroxysmal atrial fibrillation; I50.9 Heart failure, unspecified; R57.8 Other shock; M48.02 Spinal stenosis, cervical region; E11.51 Type 2 diabetes mellitus with diabetic peripheral angiopathy without gangrene; R74.01 Elevation of levels of liver transaminase levels; R79.89 Other specified abnormal findings of blood chemistry; F14.90 Cocaine use, unspecified, uncomplicated; Z20.822 Contact with and (suspected) exposure to COVID-19; Z99.2 Dependence on renal dialysis; Z79.84 Long term (current) use of oral hypoglycemic drugs; Z79.4 Long term (current) use of insulin; Z79.899 Other long term (current) drug therapy; Z68.27 Body mass index [BMI] 27.0-27.9, adult; Z86.73 Personal history of transient ischemic attack (TIA), and cerebral infarction without residual deficits
CPT/HCPCS: 36415; 36556; 36589; 36600; 71045; 71275; 76700; 77001; 80048; 80053; 80061; 80076; 80202; 82375; 82550; 82553; 82607; 82728; 82746; 82805; 82962; 82977; 83036; 83540; 83550; 83605; 83735; 83880; 84100; 84145; 84439; 84443; 84484; 85014; 85018; 85025; 85044; 86803; 86850; 86900; 86920; 87340; 87426; 90935; 93005; 93306; 93308; 93923; 99291; C1752; C1887; C1893; J0885; J1160; J1644; J1815; J2501; J2543; J3010; J3370; J3490; J7060; P9016; Q9967